=== PATIENT | female | born 1990 | race Caucasian/White ===

== ENCOUNTER 2017-06-27 20:09 | Inpatient (IN) | payer BC ==
[~2017-06-27] VITALS: Ht 170.2 cm; Wt 74.5 kg
[~2017-06-27 20:09] MED LIST: CEFTIN 250250 MG/TAB PO; MOTRIN 800800 MG/TAB PO; NO HOME MEDICATIONS; PERCOCET 325 MG1 TA2 PO; PRENATAL1 TA7 PO; PYRIDIUM200 M1 PO
[2017-06-27 22:27] VITALS: BP 115/71; PULSE 93; TEMP 98.8
[2017-06-27] MEDS ORDERED: MASON NATURAL2000 IU (22:36)
[2017-06-27 23:09] LABS: HEMATOCRIT 39.9 % (37.0-47.0); HEMOGLOBIN 13.6 g/dl (12.5-16.0); MEAN CELL VOLUME 87 fl (80.0-100.0); MEAN CORPUSCULAR HEMOGLOBIN 30 pg (27.0-31.0); RED BLOOD COUNT 4.59 M/mm3 (4.10-5.30)
[2017-06-27 23:10] LABS: MEAN CORPUSCULAR HGB CONC 34 g/dl (33.0-37.0); MEAN PLATELET VOLUME 11.6 fl (7.4-10.4); PLATELET COUNT 293 K/mm3 (130-400)
[2017-06-27 23:13] LABS: ADD PATHOLOGY DIFF REVIEW NO; WHITE BLOOD COUNT 27.5 K/mm3 (4.8-10.8)
[2017-06-27 23:14] VITALS: BP 134/82; PULSE 100
[2017-06-28] VITALS (9 sets, daily range): BP systolic 105–125; BP diastolic 52–76; PULSE 76–95; TEMP 97.5–99.1
[2017-06-28 00:51] LABS: BAND 3 % (0-10); EOSINOPHIL 3 % (0-4); LYMPHOCYTE 16 % (20.0-51.0); NEUTROPHILS 76 % (42.0-75.2); TOTAL CELLS COUNTED 100
[2017-06-28 00:52] LABS: ANISOCYTOSIS 1+; MICROCYTOSIS 2+; PLATELET ESTIMATE NORMAL (NORMAL); ROULEAUX 1+
[2017-06-29 08:45] VITALS: BP 120/74; PULSE 90; TEMP 98.6
[2017-06-29 08:50] VITALS: BP 120/74; PULSE 90; TEMP 98.6
[2017-06-29] MEDS ORDERED: IBU800 M1 PO (10:38)
== END 2017-06-29 10:50 | disposition home or self-care (01) | DRG 775 ==
LOC: LDRO 20:09 → LDR 22:41 → OB 22:41
PROVIDERS: Obstetrics & Gynecology
PROC: 10E0XZZ Delivery of Products of Conception, External Approach (ICD-10-PCS; principal; 2017-06-28)
PROC: 0KQM0ZZ Repair Perineum Muscle, Open Approach (ICD-10-PCS; 2017-06-28)
DX: O70.1 Second degree perineal laceration during delivery (principal); Z37.0 Single live birth; Z3A.38 38 weeks gestation of pregnancy
CPT/HCPCS: J2590

== ENCOUNTER 2018-01-23 17:37 | Emergency (ER) | payer OTHER ==
[~2018-01-23] VITALS: Ht 170.2 cm; Wt 56.8 kg
[~2018-01-23 17:37] MED LIST changes: +IBU800 M1 PO; +MASON NATURAL2000 IU
[2018-01-23 17:39] VITALS: BP 121/79; TEMP 98.6
[2018-01-23 19:31] LABS: BASO # 0.1 (0.0-0.2); BASO % 1.1 % (0.0-2.0); EOS # 0.2 (0.0-0.7); EOS % 2.5 % (0-4.0); GRAN # 5.4 (1.4-6.5); GRAN % 65.7 % (42.2-75.2); HEMATOCRIT 41.2 % (37.0-47.0); HEMOGLOBIN 14.2 g/dl (12.5-16.0); LYMPH # 2.2 (1.2-3.4); LYMPH % 26.5 % (20.0-51.0); MEAN CELL VOLUME 83 fl (80.0-100.0); MEAN CORPUSCULAR HEMOGLOBIN 29 pg (27.0-31.0); MEAN CORPUSCULAR HGB CONC 35 g/dl (33.0-37.0); MEAN PLATELET VOLUME 9.7 fl (7.4-10.4); MONO # 0.3 (0.1-0.6); PLATELET COUNT 320 K/mm3 (130-400); RED BLOOD COUNT 4.94 M/mm3 (4.10-5.30); REDCELL DISTRIBUTION WIDTH-CV 12.1 % (11.5-14.5)
[2018-01-23 19:43] LABS: ANION GAP 13 mmol/L (7-16); BLOOD UREA NITROGEN 15 mg/dL (7-17); CALCIUM 9.5 mg/dL (8.4-10.2); CARBON DIOXIDE 24 mmol/L (22-30); CHLORIDE 102 mmol/L (98-107); CREATININE, serum 0.73 mg/dL (0.52-1.25); GLUCOSE 92 mg/dL (74-106); POTASSIUM 4.3 mmol/L (3.4-5.0); SODIUM 139 mmol/L (137-145)
[2018-01-23 19:56] LABS: TROPONIN-I < 0.012 ng/mL (0.000-0.034)
[2018-01-23 20:51] VITALS: PULSE 76
== END 2018-01-23 20:51 | disposition home or self-care (01) ==
LOC: COL.ER 17:37
PROVIDERS: Physician Assistant
DX: F43.9 Reaction to severe stress, unspecified (principal); R07.89 Other chest pain

== ENCOUNTER 2019-05-12 13:47 | Inpatient (IN) | payer OTHER ==
[~2019-05-12] VITALS: Ht 170.2 cm; Wt 75.5 kg
[2019-05-12] VITALS (22 sets, daily range): BP systolic 111–168; BP diastolic 64–84; PULSE 74–101; TEMP 97.4–98.7
--- NOTE | 2019-05-12 14:00 | NUR ---
Pt arrives on unit ambulatory with spouse. States regular and painful ctx starting at 0130 that have intensified over past hour. Reports bloody show. Denies LOF and reports GFM. Changed into clean gown. EFM and toco applied. VSS. SVE per this RN /-2. Admission assessment completed. Dr. Good notified. See physician notification. Pt updated on POC. Safety reviewed. Will ambulate hallways. No questions or concerns at this time.
[2019-05-12] MEDS ORDERED: PRENATAL MVI (14:09)
--- NOTE | 2019-05-12 14:25 | NUR ---
Reactive FHR strip obtained. Pt taken off monitors to ambulate.
[2019-05-12 15:59] LABS: BASO # 0.1 (0.0-0.2); BASO % 0.5 % (0.0-2.0); EOS # 0.1 (0.0-0.7); EOS % 0.7 % (0-4.0); GRAN % 75.7 % (42.2-75.2); HEMOGLOBIN 13.8 g/dl (12.5-16.0); LYMPH # 2.8 (1.2-3.4); LYMPH % 17.5 % (20.0-51.0); MEAN CELL VOLUME 85 fl (80.0-100.0); MEAN CORPUSCULAR HEMOGLOBIN 29 pg (27.0-31.0); MEAN CORPUSCULAR HGB CONC 34 g/dl (33.0-37.0); MEAN PLATELET VOLUME 11.6 fl (7.4-10.4); MONO # 0.8 (0.1-0.6); PLATELET COUNT 255 K/mm3 (130-400); REDCELL DISTRIBUTION WIDTH-CV 12.3 % (11.5-14.5)
--- NOTE | 2019-05-12 16:11 | NUR ---
Difficulty tracing FHR due to maternal position. RN at bedside adjusting monitors. FHR audible.
--- NOTE | 2019-05-12 19:30 | NUR ---
1800- Report from SHIRA Palencia. 1844- SVE Complete/0. called for delivery. 1904- at bedside. Room prepared for delivery. Nursery RN notified. Patient begins pushing with contractions. 1908- of viable baby girl. Cord clamped and cut by FOB. Cord blood obtained. 1913- Spontaneous delivery of intact placenta. Pitocin infusing at 333ml/hr per protocol. Fundus massaged to firm by MD. 2nd degree perineal laceration repaired by . Pericare provided. Ice pack applied. 1914- PP Recovery starts.
[2019-05-13 00:20] VITALS: BP 115/79; PULSE 91; TEMP 97.7
[2019-05-13 04:50] VITALS: BP 101/68; PULSE 74; TEMP 97.2
[2019-05-13 08:35] VITALS: BP 115/70; PULSE 84; TEMP 98.1
[2019-05-13] MEDS ORDERED: MOTRIN 600600 MG/TAB PO (08:56)
[2019-05-13] MEDS ORDERED: PERCOCET 325 MG1 TA2 PO (08:57)
== END 2019-05-13 09:25 | disposition home or self-care (01) | DRG 807 ==
LOC: LDRO 13:47 → LDR 14:00 → OB 22:15
PROVIDERS: Obstetrics & Gynecology; ADMIT Student in an Organized Health Care Education/Training Program
PROC: 10E0XZZ Delivery of Products of Conception, External Approach (ICD-10-PCS; principal; 2019-05-12)
PROC: 0KQM0ZZ Repair Perineum Muscle, Open Approach (ICD-10-PCS; 2019-05-12)
DX: O70.1 Second degree perineal laceration during delivery (principal); Z37.0 Single live birth; Z3A.39 39 weeks gestation of pregnancy
CPT/HCPCS: J2590; J7120

== ENCOUNTER → 2020-10-09 | Outpatient (CLI) | payer OTHER ==
[~2020-10-09] MED LIST changes: +MOTRIN 600600 MG/TAB PO; +PRENATAL MVI
== END ==
LOC: COL.VAS
DX: R00.2 Palpitations (principal)

== ENCOUNTER 2022-09-19 15:17 | Inpatient (IN) | payer MEDICAID ==
[2022-09-19] VITALS (17 sets, daily range): BP systolic 109–142; BP diastolic 65–94; PULSE 75–134; TEMP 97.4–98.1
[~2022-09-19] VITALS: Ht 170.2 cm; Wt 80.0 kg
[2022-09-19] MEDS ORDERED: VITAMIN D31000 IU PO (15:42)
[2022-09-19 16:20] LABS: BASO # 0.1 K/mm3 (0.0-0.2); BASO % 0.5 % (0.0-2.0); EOS # 0.1 K/mm3 (0.0-0.7); EOS % 0.9 % (0.0-4.0); GRAN # 9.5 K/mm3 (1.4-6.5); HEMATOCRIT 43.5 % (37.0-47.0); HEMOGLOBIN 15.2 g/dl (12.5-16.0); LYMPH # 3.1 K/mm3 (1.2-3.4); MEAN CELL VOLUME 85 fl (80.0-100.0); MEAN CORPUSCULAR HEMOGLOBIN 30 pg (27-31); MEAN CORPUSCULAR HGB CONC 35 g/dl (33.0-37.0); MEAN PLATELET VOLUME 11.1 fl (7.4-10.4); MONO # 0.6 K/mm3 (0.1-0.6); MONO % 4.1 % (1.7-9.3); PLATELET COUNT 207 K/mm3 (130-400); RED BLOOD COUNT 5.15 M/mm3 (4.10-5.30); REDCELL DISTRIBUTION WIDTH-CV 12.7 % (11.5-14.5)
--- NOTE | 2022-09-19 17:55 | NUR ---
1750- THIS RN AT BEDSIDE TO CHECK PATIENT CERVIX. PATIENT CONSENTS AND UPON UNCOVERING PATIENT HEAD IS OBSERVED. EMERGENCY CORD IS PULLED AT THIS TIME, NURSERY NURSES AND OTHER STAFF COME TO ASSIST AND IS NOTIFIED. PATIENT PREPARED FOR DELIVERY DUE TO INVOLUNTARY PUSHING. 175- SPONTANEOUS DELIVERY OF HEAD AND PATIENT INSTRUCTED TO PUSH, SHOULDERS ALSO DELIVERED BY RNS KEYANA AND JOSE. WALKS IN PATIENT ROOM AT THIS TIME AND PREPARED TO DELIVER PLACENTA. 180- SPONTANEOUS DELIVERY OF PLACENTA. PITOCIN STARTED AT 333 ORDERED AND PER PROTOCOL AT THIS TIME.
--- NOTE | 2022-09-19 22:00 | NUR ---
Pt OOB, ambulating to utilize bathroom. Pericare performed, pt changed into gown. Pt ambulated to Room 214, accompanied by spouse with belongings in tow, while this nurse assisted in pushing baby in crib. Pt oriented to Room 214, educated on whiteboard, educated on packet, educated on floor/nurse flow, and educated on abnormal bleeding. Questions, concerns, and needs encouraged at this time. Pt verbalizes understanding and agreement of POC with "no" questions, concerns, or needs.
[2022-09-20 02:00] VITALS: BP 115/84; PULSE 71; TEMP 98
--- NOTE | 2022-09-20 09:19 | NUR ---
Initial visit; Parents thanked [employer] for offering congratulations and God's blessings for the of their daughter. [facility] thanked family for choosing [facility].
[2022-09-20 09:30] VITALS: BP 103/69; PULSE 84; TEMP 98
[2022-09-20] MEDS ORDERED: IBU600 MG PO (10:00)
[2022-09-20 12:40] VITALS: BP 110/78; PULSE 77; TEMP 97.8
[2022-09-20 19:00] VITALS: BP 130/76; PULSE 71; TEMP 98.2
[2022-09-21 07:20] VITALS: BP 111/75; PULSE 75
== END 2022-09-21 11:20 | disposition home or self-care (01) | DRG 807 ==
LOC: LDRO 15:17 → OB 16:15 → LDR 16:15 → OB 22:00
PROVIDERS: Obstetrics & Gynecology; ADMIT Student in an Organized Health Care Education/Training Program
PROC: 10E0XZZ Delivery of Products of Conception, External Approach (ICD-10-PCS; principal; 2022-09-19)
PROC: 0KQM0ZZ Repair Perineum Muscle, Open Approach (ICD-10-PCS; 2022-09-19)
DX: O99.284 Endocrine, nutritional and metabolic diseases complicating childbirth (principal); Z37.0 Single live birth; O70.1 Second degree perineal laceration during delivery; E55.9 Vitamin D deficiency, unspecified; O48.0 Post-term pregnancy; Z3A.40 40 weeks gestation of pregnancy
CPT/HCPCS: J2590; J7120